=== PATIENT | male | born 1945 | race Caucasian/White ===

== ENCOUNTER 2024-01-05 06:23 | Emergency (ER) | payer MEDICARE, BC, SELFPAY ==
[2024-01-05 06:30] VITALS: BP 132/69
[2024-01-05 07:06] LABS: Urine Albumin Trace (Neg - Trace); Urine Bilirubin Negative (Negative); Urine Character Very Cloudy (Clear); Urine Color Yellow; Urine Glucose Negative (Negative); Urine Ketone Negative (Negative); Urine Leukocyte 2+ (Negative); Urine Nitrite Positive (Negative); Urine Occult Blood 2+ (Negative); Urine Specific Gravity 1.015 (<1.030); Urine Urobilinogen Negative (Neg - 1+)
--- NOTE | 2024-01-05 07:23 | ED.GENMED ---
History of Present Illness
General
Chief Complaint: Male Genito-Urinary Symptoms
Source: patient
Exam Limitations: none
Time Seen by Provider: 01/05/24 06:44
Nursing documentation reviewed up to this point in time: agreed with
Travel History
Have you had any contact with someone who has COVID-19?: No
Do you have any symptoms of coronavirus? Fever > 100 degrees, chills, cough, shortness of breath, sore throat, loss of taste or smell, muscle aches, or headache?: No
History of Present Illness
History of Present Illness:
78-year-old male with past medical history of hypertension who presents to the emergency room for evaluation of urinary symptoms and chills. Patient reports that he had procedure for tear duct issue in the right eye; procedure was done as an
outpatient 2 weeks ago. He says that he had postprocedural urinary retention requiring a trip to the emergency room at [facility]. He says that in the emergency room they placed a Piedra catheter. He says that he had the catheter removed 2 days
ago as an outpatient through [facility]. He says that since removal he has had dysuria and increased urinary frequency. He says that last night he was having chills and he was concerned that he developed an infection. He says he is still having
some difficulty with starting a stream. Came to the emergency room for assessment. He denies any abdominal pain or flank pain. He denies any nausea or vomiting. He denies any blood in his urine. He denies any other complaints. He was not
started on Flomax at any point; only medication is losartan for blood pressure.
Review of Systems
Review of Systems
All Other Systems: ROS reviewed and negative except as documented in HPI and ROS
Constitutional: Reports fever and chills
EENT: Denies sore throat or runny nose
Respiratory: Denies trouble breathing
Cardiac: Denies chest pain
ABD/GI: Denies abdominal pain, nausea or vomiting
: Reports dysuria, frequency and difficulty voiding; Denies flank pain or bleeding
Musculoskeletal: Denies neck pain or back pain
Neurological: Denies headache
Phy Exam
Physical Exam
Physical Exam:
General: Awake, alert, oriented x3; no acute distress
Head: Normocephalic, atraumatic
Eyes: Conjunctiva normal
Throat: Airway intact, handling secretions
Neck: Trachea midline, supple without meningismus
Lungs: Breathing comfortably no distress
Heart: Regular rate and rhythm
Abd: Soft, non distended, minimally tender in the suprapubic region
Neuro: No gross deficits
Skin: no rash
Extremities: Warm and well-perfused
Scores
Heart Failure Risk
Heart Failure Risk Score: Not Applicable
Heart Score for Chest Pain Patients
STEMI patient?: Not applicable
Withdrawal Assessment of Alcohol
Withdrawal Assessment Completed?: Not applicable
Course
Orders/Labs/Results
Orders:
Orders
01/05/24 06:45
Bladder Scan- Treatment ONCE
01/05/24 06:56
Urinalysis Reflex To Culture Urgent
Date Specimen was Collected: 01/05/24
Time Specimen was Collected: 06:54
Urine Microscopic Reflex Cult Urgent
Urine Culture Urgent
SEBAS Source: U
Specimen Description:
Date Specimen was Collected: 01/05/24
Time Specimen was Collected: 06:54
01/05/24 07:21
Complete Blood Count/With Diff Urgent
Comprehensive Metabolic Panel Urgent
01/05/24 08:03
Cefdinir [Omnicef] 300 mg PO NOW STA
Abnormal Lab Results
01/05/24 01/05/24
06:56 07:21
WBC 14.1 H 10^3/uL
(4.8-10.8)
RBC 3.84 L 10^6/uL
(4.70-6.10)
Hgb 12.4 L g/dL
(13.0-18.0)
Hct 34.7 L %
(39.0-52.0)
MCH 32.3 H pg
(27.0-31.0)
Abs Immat Gran (auto) 0.1 H 10^3/uL
(0-0.05)
Absolute Neuts (auto) 11.2 H 10^3/uL
(1.4-6.5)
Absolute Monos (auto) 1.2 H 10^3/uL
(0.1-0.6)
Neutrophils % 79.7 H %
(42.2-75.2)
Lymphocytes % 10.9 L %
(20.5-51.1)
BUN 23 H mg/dl
(9-20)
Glucose 104 H mg/dl
(70-99)
AST 16 L U/L
(17-59)
Ur Occult Blood Reflex 2+ A
(Negative)
Urine Nitrite (Reflex) Positive A
(Negative)
Leukocyte Esterase Rfl 2+ A
(Negative)
Urine RBC 7-10 A /HPF
(0-2)
Urine WBC (Reflex) >100 A /HPF
(0-5)
Urine Bacteria (Reflex) Many A
(Negative)
01/05/24 07:21
01/05/24 07:21
Vital Signs
Initial and Last Documented VS:
Initial Vital Signs
Temp Pulse Resp BP Pulse Ox
37.7 C 64 18 132/69 98
01/05/24 06:30 01/05/24 06:30 01/05/24 06:30 01/05/24 06:30 01/05/24 06:30
Last Documented Vital Signs
Temp Pulse Resp BP Pulse Ox
37.7 C 64 18 132/69 98
01/05/24 06:30 01/05/24 06:30 01/05/24 06:30 01/05/24 06:30 01/05/24 06:30
MDM/Problems Addressed
Differential Diagnosis Includes:
UTI, urethral irritation from Piedra catheter, acute urinary retention
MDM/Problems Addressed:
78-year-old male presents to the emergency room for evaluation of urinary symptoms and chills. He had procedure for right tear duct issue, postoperative urinary retention requiring Piedra catheter for about a week. Catheter removed 2 days ago.
Having issues establishing a stream still and has had dysuria and frequency. Last night having chills. Borderline fever here otherwise normal vitals. Exam as above. He was able to void successfully here, bladder scan postvoid showed some slight
retention with about 100 cc in the bladder. Patient strong preference is to avoid Piedra catheter again and I think with him freely voiding with only slight amount of retention reasonable to hold off for now. Suspect likely acute UTI. Will check
basic labs. Send urinalysis. Since he is still having issues with stream reasonable to start Flomax.
Urinalysis positive for nitrites and leukocyte esterase concerning for infection. Awaiting results of labs.
Labs reviewed: CBC shows leukocytosis to 14 likely related to acute UTI. CMP no clinically significant abnormalities, normal creatinine. Urine microscopy returned with many bacteria and significant pyuria, again, consistent with infection. Case
discussed with urology, will start on Flomax, treat with antibiotics and patient can call to follow-up in the office. Patient comfortable with this plan. I spoke to him in detail about return precautions and all questions were answered.
*Pulse Oximetry
Patient hypoxic: no
*Critical Care Note
Total Time (30-74mins, 75-104mins- exclusive of procedures): Not Applicable
Data Reviewed
Source: patient and spouse
ED Attending Note
-
Portions of this chart may have been created with voice recognition software.� Occasional wrong word or��sound alike� substitutions may have occurred due to the inherent limitations of voice recognition software.
Discharge Plan
Departure
Patient Disposition: Home (Routine Discharge)
Date of Disposition: 01/05/24
Time of Disposition: 08:04
Patient with high blood pressure during this ER visit?: No
Discharge Problem:
Acute UTI
Instructions: Urinary Tract Infection, Adult ED
Prescriptions:
New
cefdinir 300 mg capsule
300 mg PO BID Qty: 20 0RF
tamsulosin [Flomax] 0.4 mg capsule
0.4 mg PO DAILY Qty: 30 0RF
Referrals:
Filiberto Escalante MD [Family Provider] -
Brendan Farrell MD [Active] - Call in 1-3 days for appt
Activity Restrictions/Additional Instructions:
Thank you for visiting the Emergency Department at [facility].
1. Please schedule a follow up appointment as directed. Call first thing tomorrow morning to make an appointment.
2. If indicated, please take your medications as instructed and indicated on discharge paperwork.
3. If any of your symptoms do not improve, or persist, or become more severe within 6-12 hours, please return to the emergency department for further care.
4. Please return to the emergency department if you develop a headache, neck pain/stiffness, fever greater than 100.4F, chest pain, shortness of breath, persistent nausea, vomiting, slurred speech, difficulty walking, numbness/tingling, weakness,
signs of infection or any other symptoms that are worrisome to you.
Please call [phone] if you have any questions.
Interventions
Interventions:
*Risk Screen - Suicide Last Done: 01/05/24 06:30
*General Assessment Last Done: 01/05/24 06:30
*Neglect/Abuse Screening Last Done: 01/05/24 06:30
ED- Fall Risk Assessment Last Done: 01/05/24 06:30
*ED COVID-19 Vaccine History Last Done: 01/05/24 06:30
ED-Male Genitourinary Assessment Last Done: 01/05/24 06:45
Discharge Date and Time
Print Language: EMIRATI
[2024-01-05 07:29] LABS: % Basophils 0.4 % (0-2); % Eosinophils 0.1 % (0-6); % Immature Granulocytes 0.4 % (0-0.5); % Lymphocytes 10.9 % (20.5-51.1); % Monocytes 8.5 % (1.7-9.3); % Neutrophils 79.7 % (42.2-75.2); Absolute Basophils 0.1 10^3/uL (0-0.2); Absolute Immature Granulocytes 0.1 10^3/uL (0-0.05); Absolute Lymphocytes 1.5 10^3/uL (1.2-3.4); Absolute Monocytes 1.2 10^3/uL (0.1-0.6); Absolute Neutrophils 11.2 10^3/uL (1.4-6.5); Hematocrit 34.7 % (39.0-52.0); Hemoglobin 12.4 g/dL (13.0-18.0); Mean Corp Hgb Conc. 35.7 g/dL (33.0-37.0); Mean Corpuscular Hgb 32.3 pg (27.0-31.0); Mean Corpuscular Volume 90.4 fL (80.0-94.0); Mean Platelet Volume 9.5 fL (7.4-10.4); Nucleated Red Blood Cells % 0 % (-); Platelet Count 179 10^3/uL (130-400); Red Blood Cell Count 3.84 10^6/uL (4.70-6.10); Red Cell Dist. Width 13.1 % (11.5-14.5); White Blood Cell Count 14.1 10^3/uL (4.8-10.8)
[2024-01-05 07:42] LABS: ALT (SGPT) 12 U/L (0-50); AST (SGOT) 16 U/L (17-59); Albumin 3.7 g/dl (3.5-5.0); Alkaline Phosphatase 53 U/L (38-126); Blood Urea Nitrogen 23 mg/dl (9-20); Calcium 8.7 mg/dl (8.4-10.2); Carbon Dioxide 27 mmol/L (22-30); Chloride 106 mmol/L (98-107); Glucose 104 mg/dl (70-99); Potassium 4.3 mmol/L (3.5-5.1); Sodium 137 mmol/L (135-145); Total Bilirubin 1.3 mg/dl (0.2-1.3); Total Protein 7.5 g/dl (6.3-8.2); eGFR > 60.00
[2024-01-05 07:54] LABS: Urine Squamous Cell 0-2 /LPF (Few)
[2024-01-05 07:55] LABS: Urine Bacteria Many (Negative); Urine White Cell >100 /HPF (0-5)
[2024-01-05] MEDS: OMNICEF 300 MG PO (08:27)
== END 2024-01-05 08:37 | disposition home or self-care (01) ==
LOC: EMR 06:23
PROVIDERS: EMERGENCY PHYSICIAN Emergency Medicine; FAMILY PHYSICIAN Family Medicine
DX: N39.0 Urinary tract infection, site not specified (principal); I10 Essential (primary) hypertension; Z98.890 Other specified postprocedural states
CPT/HCPCS: 99283; 51798; 80053; 81003; 81015; 85025; 87077; 87086

== ENCOUNTER 2024-12-19 09:01 | Emergency (ER) | payer OTHER, SELFPAY ==
[2024-12-19 09:02] VITALS: BP 173/78
[2024-12-19 09:44] LABS: Urine Albumin Negative (Neg - Trace); Urine Bilirubin Negative (Negative); Urine Character Clear (Clear); Urine Color Yellow; Urine Glucose Negative (Negative); Urine Ketone Negative (Negative); Urine Leukocyte Negative (Negative); Urine Nitrite Negative (Negative); Urine Occult Blood 1+ (Negative); Urine Specific Gravity 1.015 (<1.030); Urine Urobilinogen Negative (Neg - 1+)
--- NOTE | 2024-12-19 09:49 | ED.GENMED ---
History of Present Illness
General
Chief Complaint: Male Genito-Urinary Symptoms
Source: patient and spouse
Exam Limitations: none
Time Seen by Provider: 12/19/24 09:08
Nursing documentation reviewed up to this point in time: agreed with
History of Present Illness
History of Present Illness:
79-year-old male past medical history of hypertension presenting to the emergency department today with concerns of urinary retention unable to urinate since last night. Recently treated for UTI
Review of Systems
Review of Systems
Allergies reviewed?: Yes
All Other Systems: ROS reviewed and negative except as documented in HPI and ROS
Phy Exam
Physical Exam
Physical Exam:
GENERAL: Alert , in no apparent distress
EYE: pupils equal and reactive
NECK: Supple, no significant adenopathy.
ENT: o/p clr, mmm.
CARDIAC: Regular rate and rhythm .
LUNGS: Clear breath sounds bilaterally, no acute respiratory distress, no wheezes/rales/rhonchi
ABDOMEN: Discomfort to the suprapubic and some tenseness otherwise the abdomen is soft, without focal tenderness, no r/g, no cvat
NEUROLOGICAL: Alert and oriented, no focal neuro deficits
SKIN: Warm and dry, skin intact.
MUSCULOSKELETAL: No edema, well perfused.
PSYCH: Normal and appropriate interaction.
Course
Orders/Labs/Results
Orders:
Orders
12/19/24 09:31
Urinalysis Reflex To Culture Urgent
Date Specimen was Collected: 12/19/24
Time Specimen was Collected: 09:30
Urine Microscopic Reflex Cult Urgent
Abnormal Lab Results
12/19/24
09:31
Ur Occult Blood Reflex 1+ A
(Negative)
Vital Signs
Initial and Last Documented VS:
Initial Vital Signs
Temp Pulse Resp BP Pulse Ox
98.2 F 79 16 173/78 98
12/19/24 09:02 12/19/24 09:02 12/19/24 09:02 12/19/24 09:02 12/19/24 09:02
Last Documented Vital Signs
Temp Pulse Resp BP Pulse Ox
98.2 F 79 16 173/78 98
12/19/24 09:02 12/19/24 09:02 12/19/24 09:02 12/19/24 09:02 12/19/24 09:02
MDM/Problems Addressed
MDM/Problems Addressed:
79-year-old male presenting to the emergency department today with concerns of urinary retention unable to urinate since yesterday. Currently being treated for UTI with Bactrim. Urinalysis without evidence of any infection ongoing at this point.
Stable close outpatient follow-up with urology. Return precautions given.
*Critical Care Note
Total Time (30-74mins, 75-104mins- exclusive of procedures): Not Applicable
ED Attending Note
-
Portions of this chart may have been created with voice recognition software.� Occasional wrong word or��sound alike� substitutions may have occurred due to the inherent limitations of voice recognition software.
Discharge Plan
Departure
Patient Disposition: Home (Routine Discharge)
Date of Disposition: 12/19/24
Time of Disposition: 10:09
Patient with high blood pressure during this ER visit?: No
Condition: Good
Covid-19: Not Applicable
Discharge Problem:
Acute urinary retention
Instructions: Urinary Retention (DC)
Prescriptions:
No Action
cefdinir 300 mg capsule
300 mg PO BID Qty: 20 0RF
tamsulosin [Flomax] 0.4 mg capsule
0.4 mg PO DAILY Qty: 30 0RF
Referrals:
Filiberto Escalante MD [Family Provider, Family Practice]
Yuri Lopez Jr., MD [Active, Urology]
Activity Restrictions/Additional Instructions:
You came to the emergency department today with concerns of urinary retention. Please follow closely with urology. Return for any worsening, new or concerning symptoms.
Interventions
Interventions:
*Risk Screen - Suicide Last Done: 12/19/24 09:27
ED-Male Genitourinary Assessment Last Done: 12/19/24 09:27
Discharge Date and Time
Print Language: SYRIAC
[2024-12-19 10:10] LABS: Urine Squamous Cell 0-2 /LPF (Few); Urine Urothelial Cell 0-2 /LPF (FEW)
[2024-12-19 10:25] LABS: Urine Red Blood Cell 0-2 /HPF (0-2); Urine White Cell 0-2 /HPF (0-5)
== END 2024-12-19 10:20 | disposition home or self-care (01) ==
LOC: EMR 09:01
PROVIDERS: Physician Assistant; EMERGENCY PHYSICIAN Emergency Medicine; FAMILY PHYSICIAN Family Medicine
DX: R33.9 Retention of urine, unspecified (principal); I10 Essential (primary) hypertension
CPT/HCPCS: 99283; 81003; 81015

== ENCOUNTER → 2025-07-16 12:30 | Outpatient (REF) | payer OTHER, SELFPAY | LOC: HWRCS 12:30 | PROVIDERS: ATTENDING PHYSICIAN Family Medicine | DX: I25.2 Old myocardial infarction (principal); I10 Essential (primary) hypertension; I25.10 Atherosclerotic heart disease of native coronary artery without angina pectoris | CPT/HCPCS: 93306 ==